=== PATIENT | male | born 1985 | race Caucasian/White ===

== ENCOUNTER → 2020-01-06 13:41 | Outpatient (CLI) | payer OTHER, SELFPAY ==
--- NOTE | ~2020-01-06 | CT_ITS ---
EXAMINATION: CT abdomen w con EXAM DATE: 01/06/2020 14:25 INDICATION: Epigastric pain. Hypertension and constipation. TECHNIQUE: Spiral CT of the abdomen was performed following intravenous injection of 100 mL Omnipaque 350. Axial, coronal and sagittal images were reviewed. The dose-length product (DLP) for this exam ination was 793.36 mGy-cm. The exposure was tailored according to patient size (auto mA exposure con trol), and iterative reconstruction (ASIR) was used as additional dose reduction technique. There is no prior study for comparison. FINDINGS: The liver, spleen, adrenal glands and pancreas are unremarkable. Gallbladder is unremarkab le. No biliary obstruction. Portal and splenic veins are patent. Kidneys enhance symmetrically. T here is no hydronephrosis. There is increased of visible mesenteric lymph nodes, well within normal size limits, probably reactive and/or could be mesenteric adenitis. Also mild quincy mesentery appeara nce. Imaged portion of appendix is normal. The stomach and small bowel are unremarkable. There is expect ed amount of colonic stool. No free intraperitoneal gas. The heart is normal in size. There are no pericardial or pleural effusions. The lung bases are unremarkable. The bones are normal. IMPRESSION: Increased number of normal-sized mesenteric lymph nodes nodes. These could be reactive, m esenteric adenitis. Reviewed, dictated and finalized at location A. IMPRESSION: Increased number of normal-sized mesenteric lymph nodes nodes. Thes e could be reactive, mesenteric adenitis.
[2020-01-07 14:16] LABS: Estimated Glomerular Filt Rate > 60
== END ==
PROVIDERS: PCP Registered Nurse
DX: R10.84 Generalized abdominal pain (principal)
CPT/HCPCS: 36415; 74160; Q9967

== ENCOUNTER 2020-11-25 13:23 | Emergency (ER) | payer OTHER, SELFPAY ==
--- NOTE | ~2020-11-25 | XR_ITS ---
EXAMINATION: XR chest 2V DATE: 11/25/2020 13:51 INDICATION: Left chest pain. TECHNIQUE: Frontal and lateral views of the chest were obtained. COMPARISON: CT abdomen 01/06/2020 FINDINGS: The chest demonstrates clear lungs without pneumonia, pleural effusion, or pneumothorax. Th e heart size is normal. IMPRESSION: 1. No acute cardiopulmonary disease. Reviewed, dictated and finalized at location A.
--- NOTE | 2020-11-25 13:26 | ECG_ITS ---
Measurements Intervals [place] Rate: 87 P: 29 [place]: 143 QRS: -23 QRSD: 124 T: 28 QT: 349 QTc: 422 Interpretive Statements SINUS RHYTHM INTRAVENTRICULAR CONDUCTION DELAY BORDERLINE R WAVE PROGRESSION, ANTERIOR LEADS BASELINE ARTIFACT- I, II, III, AVR, AVL, AVF BORDERLINE ECG Electronically Signed On 11-25-2020 14:00:50 CDT by Rashawn Asencio D.O.
[2020-11-25 13:37] VITALS: BP 148/83; PULSE 100; RESP 16; TEMP 36.6; O2SAT 97
[2020-11-25 16:25] VITALS: BP 170/98; PULSE 101; RESP 16; O2SAT 100
[2020-11-25 16:33] VITALS: O2SAT 100
[2020-11-25 16:42] LABS: Basophils Absolute Auto 0.1 K/mm3 (0.0-0.1); Basophils Percent Auto 0.7 % (0.2-1.2); Eosinophils Absolute Auto 0.1 K/mm3 (0-0.3); Eosinophils Percent Auto 0.7 % (0-4.4); Hematocrit 50.2 % (42.0-52.0); Immature Granulocyte Absolute 0.04 K/mm3 (0.00-0.031); Immature Granulocyte Percent A 0.4 % (0-0.5); Lymphocytes Absolute Auto 2.85 K/mm3 (0.9-3.2); Lymphocytes Percent Auto 27.3 % (18.3-44.2); Mean Corpuscular HGB Conc 33.9 g/dl (32-36); Mean Corpuscular Hemoglobin 29.3 pg (26-34); Mean Corpuscular Volume 86.6 fl (80-100); Mean Platelet Volume 9.3 fl (7.4-10.4); Monocytes Absolute Auto 0.4 K/mm3 (0.1-0.6); Monocytes Percent Auto 4.2 % (2.6-8.5); Neutrophils Percent Auto 66.7 % (45.5-73.1); Platelet Count Result 281 k/mm3 (150-375); Red Cell Distribution Width 11.9 % (11.5-14.5); White Blood Count 10.5 K/mm3 (4.5-10.0)
[2020-11-25 16:52] LABS: Prothrombin Time 13.7 Seconds (11.1-14.7)
[2020-11-25 16:53] LABS: Partial Thromboplastin Time 30.9 SECONDS (22.3-36.8)
--- NOTE | 2020-11-25 16:54 | PC.NURSE ---
Per JAMIL Curtis, no Aspirin needed.
[2020-11-25 17:04] LABS: Troponin I < 0.012 ng/mL (0.000-0.034)
--- NOTE | 2020-11-25 17:17 | ED.GENADULT ---
HPI - General Adult General Chief complaint: Anxiety Stated complaint: anxiety attack, left sided chest pain Time Seen by Provider: 11/25/20 16:23 Source: patient and RN notes reviewed Mode of arrival: EMS Limitations: no limitations History of Present Illness HPI narrative: Patient is a 35-year-old male who presents to emergency department for evaluation of left-sided chest discomfort that occurred at roughly 10 AM this morning lasted roughly an hour as the chest discomfort began to resolve he had a self-described panic attack. Patient was sent to emergency department for evaluation on arrival to the ER he notes that you no longer has pain and he is feeling better. Patient notes he has had recent changes in his medications and believes that potentially the symptoms are related to his new medication changes. Patient was seen by his primary care doctor today. Patient on arrival does not appear distressed Related Data Home Medications Medication Instructions Recorded Confirmed lisinopril 15 mg PO DAILY 05/10/19 05/12/19 methylphenidate HCl 54 mg PO QAM 05/10/19 05/12/19 amlodipine 11/25/20 atorvastatin 11/25/20 fenofibrate mg 11/25/20 methylphenidate HCl [Concerta] mg PO 11/25/20 montelukast mg 11/25/20 Allergies Allergy/AdvReac Type Severity Reaction Status Date / Time No Known Allergies Allergy Verified 05/12/19 11:22 Review of Systems Review of Systems: All systems reviewed & are unremarkable except as noted in HPI and below PMFSH Past Medical History Medical History (Updated 11/25/20 @ 20:12 by Mehran Reyes PA-C) Fatty liver Hyperlipidemia Hypertension Obesity Surgical History Surgical History (Updated 11/25/20 @ 17:19 by Mehran Reyes PA-C) History of endoscopy Family History Family History (Updated 11/25/20 @ 17:19 by Mehran Reyes PA-C) Other Diabetes mellitus Hypertension Social History Social History (Updated 11/25/20 @ 17:19 by Mehran Reyes PA-C) Smoking status: Never smoker Exam Narrative: Exam Narrative: GENERAL: Well-appearing, obese, and in no acute distress. HEAD: Normocephalic, atraumatic. EYES: PERRLA and EOMI. ENT: Nares clear, no rhinorrhea or epistaxis. Mucous membranes moist. CHEST: Clear to auscultation. No respiratory distress. No wheezes rales or rhonchi HEART: Regular rate and rhythm. No murmur heard. Normal peripheral pulses. ABDOMEN: Soft, nontender, nondistended EXTREMITIES: Normal range of motion. No edema. SKIN: Warm, dry, no rash. NEURO: No focal deficits. Alert and oriented x3. PSYCH: Normal mood and affect. Course Course Emergency Course: Patient in the room at this time in no distress aware of case findings treatment plan diagnosis agreeing to follow-up as instructed felt appropriate for outpatient reevaluation no high risk changes in the evaluation Vital Signs Vital signs: Vital Signs Temperature 97.8 F 11/25/20 13:37 Pulse Rate 100 11/25/20 13:37 Respiratory Rate 16 11/25/20 13:37 Blood Pressure 148/83 H 11/25/20 13:37 Pulse Oximetry 97 11/25/20 13:37 Temperature 97.8 F 11/25/20 13:37 Pulse Rate 87 11/25/20 20:06 Respiratory Rate 18 11/25/20 20:06 Blood Pressure 139/84 11/25/20 20:06 Pulse Oximetry 100 11/25/20 20:06 Medical Decision Making MDM Narrative Medical decision making narrative: Patients EKGs and labs are without significant high risk changes. Cardiac risk factors were reviewed. Patient is felt likely to be low risk for ACS and reasonable for further risk stratification testing as an outpatient. Pain was not sudden or maximal in onset without tearing or ripping. quality. No other signs or symptoms to suggest aortic dissection. A low-risk Wells criteria is noted. PE is felt to be unlikely. No pneumonia or URI symptoms were seen on evaluation today. Patient is felt to b reasonable for continued evaluation as an outpatient. Vital Signs Vital Signs: Vital Signs [place]
[2020-11-25 19:24] LABS: Anion Gap 13 mmol/L (8-16); Blood Urea Nitrogen 12 mg/dL (9-20); Calcium 9.8 mg/dL (8.4-10.2); Carbon Dioxide 26 mmol/L (22-30); Chloride 103 mmol/L (98-107); Estimated CRCL calculation 138 ml/min; Estimated Glomerular Filt Rate > 60; Glucose 89 mg/dL (75-110); Potassium 4.1 mmol/L (3.4-5.0); Sodium 142 mmol/L (137-145)
[2020-11-25 20:06] VITALS: BP 139/84; PULSE 87; RESP 18; O2SAT 100
[2020-11-25 20:08] LABS: Troponin I < 0.012 ng/mL (0.000-0.034)
== END 2020-11-25 20:20 | disposition home or self-care (01) ==
PROVIDERS: Emergency Provider Emergency Medicine; PCP Registered Nurse
DX: R07.9 Chest pain, unspecified (principal); I10 Essential (primary) hypertension; E78.5 Hyperlipidemia, unspecified
CPT/HCPCS: 36415; 71046; 80048; 84484; 85025; 85610; 85730; 93005; 99284

== ENCOUNTER → 2020-11-27 07:47 | Outpatient (CLI) | payer OTHER, SELFPAY ==
--- NOTE | ~2020-11-27 | US_ITS ---
US abdomen complete EXAMINATION: US Abdomen Complete INDICATION: Fatty infiltration of the liver. Abdomen pain. PROCEDURE: Realtime High Resolution abdomen ultrasound. COMPARISON: No prior studies for comparison FINDINGS: Gallbladder within normal limits. No gallstones, pericholecystic fluid, gallbladder wall t hickening or biliary dilatation. Common bile duct measures 5 mm. Liver echotexture is increased, consistent with fatty infiltration.. Pancreas within normal limits. Pancreatic tail is obscured by bowel gas. Spleen is enlarged measuring 13.2 cm. Renal echotexture i s within normal limits bilaterally without hydronephrosis, contour deforming mass or renal stone. Rig ht kidney measures 11.8 cm. Left kidney measures 12.6 cm. Visualized aspects of the aorta and IVC are within normal limits. Portal vein is patent. No sonograph ic Mast's sign indicated by the technologist. IMPRESSION: 1: Hepatic steatosis. 2: Splenomegaly. Reviewed, dictated and finalized at location B.
== END ==
PROVIDERS: PCP Internal Medicine; Visit Provider Internal Medicine
DX: K76.0 Fatty (change of) liver, not elsewhere classified (principal); R16.1 Splenomegaly, not elsewhere classified
CPT/HCPCS: 76700

== ENCOUNTER → 2021-05-10 12:20 | Outpatient (CLI) | payer OTHER, SELFPAY ==
--- NOTE | ~2021-05-10 | CT_ITS ---
EXAMINATION: CT abdomen pelvis wo con DATE: 05/10/2021 13:08 INDICATION: Lower abdominal pain TECHNIQUE: Computed tomography (CT) of the abdomen and pelvis was performed without intravenous contr ast. The dose-length product was 1099.17 mGy-cm. Automated exposure control and iterative reconstruct ion technique were employed. COMPARISON: None. FINDINGS: Lung bases are unremarkable. Heart size is normal. No significant pleural or pericardial ef fusion. There is hazy infiltration of the mesentery with mild mesenteric lymphadenopathy. Nonobstruct lona bowel gas pattern. Fatty infiltration of the liver. The pancreas, adrenal glands and kidneys are unremarkable. Gallbladder is mildly distended. Nonobstructive bowel gas pattern. No evidence for dive rticulitis or appendicitis. There is splenomegaly. IMPRESSION: 1. Mild mesenteric lymphadenopathy with mild fatty stranding of the mesentery. 2: Splenomegaly. 3: Hepatic steatosis. Reviewed, dictated and finalized at location A. ING SUPERINTENDENT
== END ==
PROVIDERS: PCP Internal Medicine; Visit Provider Internal Medicine
DX: R10.30 Lower abdominal pain, unspecified (principal); M79.18 Myalgia, other site; K57.92 Diverticulitis of intestine, part unspecified, without perforation or abscess without bleeding; R59.0 Localized enlarged lymph nodes; R16.1 Splenomegaly, not elsewhere classified; K76.0 Fatty (change of) liver, not elsewhere classified
CPT/HCPCS: 74176

== ENCOUNTER → 2022-06-17 11:14 | Outpatient (CLI) | payer OTHER, SELFPAY ==
--- NOTE | ~2022-06-17 | CT_ITS ---
CT Abdomen and Pelvis with contrast. History: Abdominal pain. Spiral CT of the abdomen and pelvis was performed after the administration of intravenous contrast. 1 00 cc of Omnipaque 350 was administered intravenously without complication. Dose reduction technique was used on this scan by utilizing automated exposure control and iterative reconstruction technique. The dose-length product (DLP) was 999.10 mGy-cm. COMPARISON: 05/10/2021 Findings: Scans through the lung bases demonstrate mild atelectatic change. The liver, spleen, pancreas, gallbladder, adrenals and kidneys are within normal limits. No evidence of aortic aneurysm. Small shotty central mesenteric lymph nodes are present with minimal haziness of the mesentery. There is no evidence of bowel obstruction. There is no evidence to suggest acute appendicitis or dive rticulitis. Images through the pelvis were performed. Urinary bladder unremarkable. Prostate gland and seminal ve sicles are unremarkable. No ascites is seen. 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 Reviewed, dictated and finalized at [facility]. 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
[2022-06-17 11:38] LABS: Estimated Glomerular Filt Rate > 60
== END ==
PROVIDERS: PCP Internal Medicine; Visit Provider Internal Medicine
DX: R10.32 Left lower quadrant pain (principal)
CPT/HCPCS: 74177; Q9967

== ENCOUNTER 2023-06-19 09:01 | Emergency (ER) | payer OTHER, SELFPAY ==
--- NOTE | 2023-06-19 09:11 | ED.URI ---
HPI - URI/Sore Throat General Chief Complaint: Upper Respiratory Infection Stated Complaint: sore throat Time Seen by Provider: 06/19/23 09:29 Source: patient and RN notes reviewed Mode of arrival: ambulatory Limitations: no limitations History of Present Illness HPI Narrative: 37 year old male presents with concern for sore throat. He reports symptoms for 2-3 days. He reports some nasal congestion or rhinorrhea that are improving with the sore throat is not improving. He reports postnasal drainage. Reports he took DayQuil and NyQuil. He had fever, chills, sweats initially but no longer does. MD elicited complaint: sore throat Related Data Home Medications Medication Instructions Recorded Confirmed lisinopril 20 mg tablet 15 mg PO DAILY 05/10/19 06/19/23 amlodipine 10 mg tablet 10 mg PO DAILY 11/25/20 06/19/23 fenofibrate 160 mg tablet 160 mg PO DAILY 11/25/20 06/19/23 lisdexamfetamine 20 mg capsule 20 mg PO DAILY 06/19/23 06/19/23 (Vyvanse) metoprolol succinate 50 mg 50 mg PO DAILY 06/19/23 06/19/23 tablet,extended release 24 hr Allergies Allergy/AdvReac Type Severity Reaction Status Date / Time erythromycin base Allergy Nose Bleed Verified 06/19/23 09:13 [From Erythrocin] Review of Systems Review of Systems: CONSTITUTIONAL: Denies malaise, chills, sweats, or fever. EYES: Denies visual changes, redness, or discharge. ENT: Reports rhinorrhea, congestion, and sore throat. CARDIOVASCULAR: Denies chest pain, palpitations, or edema. RESPIRATORY: Reports mild cough. Denies dyspnea. GASTROINTESTINAL: Denies abdominal pain, nausea, vomiting, diarrhea SKIN: Denies rash or itching. MUSCULOSKELETAL: Denies myalgia. NEUROLOGIC: Denies headache. All systems reviewed & are unremarkable except as noted in HPI and below PMFSH Past Medical History Medical History (Updated 06/19/23 @ 09:41 by Luisa Cox NP) Fatty liver Hyperlipidemia Hypertension Obesity Surgical History Surgical History (Updated 11/25/20 @ 17:19 by Mehran Reyes, BC) History of endoscopy Family History Family History (Updated 11/25/20 @ 17:19 by Mehran Reyes, PALydiaC) Other Diabetes mellitus Hypertension Social History Social History (Updated 11/25/20 @ 17:19 by Mehran Reyes, PALydiaC) Smoking status: Never smoker Comments At time of signature, agree with nursing past medical, surgical, social and family history. There is no relevant family history pertinent to the presenting complaint Exam Narrative: GENERAL: Well-appearing, well-nourished, and in no acute distress. HEAD: Normocephalic EYES: PERRLA, conjunctivae clear ENT: Nares clear, postnasal drainage. Mucous membranes moist. TM pearly grider with dull light reflex bilaterally; no tragal tenderness. Oropharynx not erythematous without lesions. Tonsils not enlarged and without exudate, no drooling, no hoarseness, no trismus, uvula midline. NECK: Supple. No lymphadenopathy CHEST: Clear to auscultation, breath sounds equal. No wheezing, rhonchi, rales, or stridor. No respiratory distress, speaks in full sentences. HEART: Regular rate and rhythm. No murmur heard. SKIN: Warm, dry, no rash. NEURO: Alert and oriented x3. PSYCH: Normal mood and affect Course Course Emergency Course: Patient is aware of diagnosis, understands and agrees to treatment plan. Anticipatory guidance given. Patient agrees to follow-up as directed and is aware of reasons to seek care at the emergency department. Portions of this record may have been created with voice recognition software Level of Care: Express Care Visit Vital Signs Vital signs: Reviewed. MDM - URI/Sore Throat MDM Narrative Medical decision making narrative: Differential diagnosis considered: Zambrano virus, strep pharyngitis, allergic rhinitis, upper respiratory tract infection, sinusitis, rhinosinusitis, nasopharyngitis. viral pharyngitis, otitis media, otitis externa, pneumonia, bronchitis
[2023-06-19 09:22] VITALS: BP 121/82; PULSE 88; RESP 16; TEMP 36.8; O2SAT 100
== END 2023-06-19 09:43 | disposition home or self-care (01) ==
PROVIDERS: Emergency Provider Nurse Practitioner; PCP Internal Medicine
DX: J06.9 Acute upper respiratory infection, unspecified (principal); E78.5 Hyperlipidemia, unspecified; I10 Essential (primary) hypertension
CPT/HCPCS: 87081; 87880; 99213; G0463

== ENCOUNTER 2023-11-22 13:52 | Outpatient (CLI) | payer OTHER, SELFPAY ==
--- NOTE | ~2023-11-22 | CT_ITS ---
EXAMINATION: CT abdomen pelvis w con DATE: 11/22/2023 14:20 INDICATION: Lower abdominal pain. TECHNIQUE: Computed tomography (CT) of the abdomen and pelvis was performed with 100 mL Omnipaque 350 intravenous contrast. Automated exposure control and iterative reconstruction technique were employe d. The dose-length product was 967.87 mGy-cm. COMPARISON: CT abdomen and pelvis 06/17/2022 FINDINGS: The visualized portions of the lung bases demonstrate mild atelectasis. No pleural effusion . The heart size is normal. No pericardial effusion. There is chronic mild splenomegaly. The liver, g allbladder, pancreas, adrenal glands, and kidneys are normal. There are no dilated loops of bowel. Th e appendix is normal. There is chronic fat stranding at the root of the small bowel mesentery. There are no pathologically enlarged lymph nodes. There is no free intraperitoneal fluid. There is mild lum bar spondylosis. IMPRESSION: 1. Chronic fat stranding at the root of the small bowel mesentery, likely mesenteric panniculitis. 2. Chronic mild splenomegaly. Reviewed, dictated and finalized at location A. IMPRESSION: 1. Chronic fat stranding at the root of the small bowel mesentery, likely mesen teric panniculitis. 2. Chronic mild splenomegaly.
[2023-11-22 14:10] LABS: Estimated Glomerular Filt Rate > 60
== END 2023-11-22 13:53 ==
LOC: MICIMG 13:53
DX: R10.30 Lower abdominal pain, unspecified (principal); R16.1 Splenomegaly, not elsewhere classified
CPT/HCPCS: 74177; Q9967

== ENCOUNTER 2023-12-26 14:53 | Outpatient (CLI) | payer OTHER, SELFPAY ==
--- NOTE | ~2023-12-26 | US_ITS ---
EXAMINATION: US retroperitoneal duplex ltd DATE: 12/26/2023 15:27 INDICATION: Hypertension. TECHNIQUE: Multiple grayscale, color Doppler, and pulsed Doppler images of the kidneys and renal raegan ralph were obtained. COMPARISON: CT abdomen and pelvis 11/22/2023 FINDINGS: The aorta peak systolic velocity is 132 cm/s. The right renal artery peak systolic velocity is 82 cm/ s in the proximal segment, 101 cm/s in the mid segment, and 85 cm/s in the distal segment. The left r enal artery peak systolic velocity is 95 cm/s in the proximal segment, 88 cm/s in the mid segment, an d 48 cm/s in the distal segment. IMPRESSION: 1. No Doppler evidence of renal artery stenosis. The prior CT similarly shows no significant renal a rtery stenosis. Reviewed, dictated and finalized at location E. IMPRESSION: 1. No Doppler evidence of renal artery stenosis. The prior CT similarly shows no significant renal artery stenosis.
== END 2023-12-26 14:54 ==
LOC: GOSHIMG 14:54
DX: I10 Essential (primary) hypertension (principal)
CPT/HCPCS: 93976